=== PATIENT | male | born 1995 | race American Indian/Alaskan Native ===

== ENCOUNTER 2019-04-13 22:10 | Emergency (ER) | payer BC, OTHER ==
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
[2019-04-14] MEDS ORDERED: TORADOL IV ONE (01:14)
[2019-04-14] MEDS ORDERED: TORADOL IM ONE (01:14)
[2019-04-14] MEDS ORDERED: IBUPROFEN PO ONE (01:15)
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
[2019-04-14 01:34] VITALS: BP 106/68
== END 2019-04-14 02:12 | disposition home or self-care (01) ==
LOC: ED 22:10
DX: S16.1XXA Strain of muscle, fascia and tendon at neck level, initial encounter (principal); S86.911A Strain of unspecified muscle(s) and tendon(s) at lower leg level, right leg, initial encounter; S20.212A Contusion of left front wall of thorax, initial encounter; S20.211A Contusion of right front wall of thorax, initial encounter; R51 Headache; R10.9 Unspecified abdominal pain; Z79.899 Other long term (current) drug therapy; V89.2XXA Person injured in unspecified motor-vehicle accident, traffic, initial encounter; Y93.89 Activity, other specified; Y92.488 Other paved roadways as the place of occurrence of the external cause; Y99.8 Other external cause status
CPT/HCPCS: 70450; 71250; 72125; 74176